=== PATIENT | female | born 1965 | race Caucasian/White ===

== ENCOUNTER 2024-06-20 07:13 | Day surgery (SDC) | payer OTHER ==
[2024-06-20] MEDS ORDERED: Xylocaine-Mpf 2% 5 Ml Vial IJ ONE (07:14)
[2024-06-20] MEDS ORDERED: Depo-Medrol 40 MG/ML IM ONE (07:14)
[2024-06-20] MEDS ORDERED: DIPRIVAN 200 MG/20 ML IV ONE (08:56)
--- NOTE | 2024-06-20 10:25 | XRAY ---
Indication: Bilateral L4-S1 MBB. Intraoperative fluoroscopy provided for 19 seconds. Single digital spot image submitted for interpretation demonstrates posterior needle tips projecting over the expected left and right L4-S1 nerve roots. Correlate with intraoperative findings/report.
--- NOTE | 2024-06-20 11:32 | XRAY ---
19 seconds of fluoroscopy was used in surgery for a bilateral L4-S1 MBB.
== END 2024-06-20 09:25 | disposition home or self-care (01) ==
LOC: SDC-PAIN 07:13
PROVIDERS: ATTEND Psychiatry & Neurology Pain Medicine
DX: M47.816 Spondylosis without myelopathy or radiculopathy, lumbar region (principal); E11.9 Type 2 diabetes mellitus without complications
CPT/HCPCS: 64493; 64494; 72020; 77002; 82947; J2704

== ENCOUNTER 2024-07-18 12:13 | Day surgery (SDC) | payer OTHER ==
[2024-07-18] MEDS ORDERED: BUPIVACAINE 0.5% VIAL IJ ONE (12:14)
[2024-07-18] MEDS ORDERED: Depo-Medrol 40 MG/ML IM ONE (12:14)
[2024-07-18] MEDS ORDERED: DIPRIVAN 200 MG/20 ML IV ONE (14:16)
--- NOTE | 2024-07-18 15:00 | XRAY ---
Indication: Bilateral L4-S1 MBB. Intraoperative fluoroscopy provided for 20 seconds. Single digital spot image submitted for interpretation demonstrates posterior needle tips projecting over the expected left and right L4-S1 nerve roots. Correlate with intraoperative findings/report.
--- NOTE | 2024-07-18 17:05 | XRAY ---
20 seconds of fluoroscopy was used in surgery for a bilateral L4-S1 MBB.
== END 2024-07-18 14:52 | disposition home or self-care (01) ==
LOC: SDC-PAIN 12:13
PROVIDERS: ATTEND Psychiatry & Neurology Pain Medicine
DX: M47.816 Spondylosis without myelopathy or radiculopathy, lumbar region (principal); E11.9 Type 2 diabetes mellitus without complications
CPT/HCPCS: 64493; 64494; 72020; 77002; 82947; J2704

== ENCOUNTER 2024-08-29 07:27 | Day surgery (SDC) | payer OTHER ==
[2024-08-29] MEDS ORDERED: LIDOCAINE HCL 1% AMPUL 5 ML IJ ONE (07:28)
[2024-08-29] MEDS ORDERED: BUPIVACAINE 0.5% VIAL IJ ONE (07:28)
[2024-08-29] MEDS ORDERED: Depo-Medrol 40 MG/ML IM ONE (07:28)
[2024-08-29] MEDS ORDERED: propofoL IV ONE (09:02)
--- NOTE | 2024-08-29 10:43 | XRAY ---
Indication: Left L4-S1 RFA. Intraoperative fluoroscopy provided for 28 seconds. 3 digital spot image submitted for interpretation demonstrates posterior needle tips projecting over expected left L4-S1 nerve roots. Correlate with intraoperative findings/report.
--- NOTE | 2024-08-29 10:51 | XRAY ---
28 seconds of fluoroscopy was used in surgery for a left L4-S1 RFA.
== END 2024-08-29 09:32 | disposition home or self-care (01) ==
LOC: SDC-PAIN 07:27
PROVIDERS: ATTEND Psychiatry & Neurology Pain Medicine
DX: M47.817 Spondylosis without myelopathy or radiculopathy, lumbosacral region (principal); E11.9 Type 2 diabetes mellitus without complications
CPT/HCPCS: 64635; 64636; 72100; 77002; 82947; J2704

== ENCOUNTER 2024-08-30 07:06 | Day surgery (SDC) | payer OTHER ==
[2024-08-30] MEDS ORDERED: Depo-Medrol 40 MG/ML IM ONE (07:07)
[2024-08-30] MEDS ORDERED: LIDOCAINE HCL 1% AMPUL 5 ML IJ ONE (07:07)
[2024-08-30] MEDS ORDERED: BUPIVACAINE 0.5% VIAL IJ ONE (07:07)
[2024-08-30] MEDS ORDERED: propofoL IV ONE (08:45)
--- NOTE | 2024-08-30 09:47 | XRAY ---
Indication: Right L4-S1 RFA. Intraoperative fluoroscopy provided for 16 seconds. 4 digital spot image submitted for interpretation demonstrates posterior needle tips projecting over expected right L4-S1 nerve roots. Correlate with intraoperative findings/report.
--- NOTE | 2024-08-30 10:29 | XRAY ---
16 seconds of fluoroscopy was used in surgery for a right L4-S1 RFA.
== END 2024-08-30 09:10 | disposition home or self-care (01) ==
LOC: SDC-PAIN 07:06
PROVIDERS: ATTEND Psychiatry & Neurology Pain Medicine
DX: M47.816 Spondylosis without myelopathy or radiculopathy, lumbar region (principal)
CPT/HCPCS: 64635; 64636; 72100; 77002; 82947; J2704

== ENCOUNTER 2024-10-15 06:17 | Day surgery (SDC) | payer OTHER ==
[2024-10-15] MEDS ORDERED: Lactated Ringers 1,000 ML IV ONE (06:46)
[2024-10-15 06:54] VITALS: O2SAT 98
[2024-10-15] MEDS: Lactated Ringers 1,000 ML IV SCH (07:05)
[2024-10-15] MEDS ORDERED: propofoL IV ONE ×2 (07:53→08:04)
[2024-10-15 08:44] VITALS: RESP 16
[2024-10-15 08:59] VITALS: BP 155/86; PULSE 63; TEMP 97.4
--- NOTE | 2024-10-17 08:15 | OP ---
SURGERY DATE/TIME: 10/15/2024 [id number] PREOPERATIVE DIAGNOSIS: Screening exam. POSTOPERATIVE DIAGNOSIS: Moderate to severe sigmoid diverticulosis; otherwise, normal colon. PROCEDURE: Colonoscopy. SURGEON: Juan Pablo Napier MD ANESTHESIA: Medications given by the anesthesia department. INDICATIONS: The patient is a 58-year-old white female presenting now for her first screening colonoscopy. She reports a family history of both her father and sister with colon cancer. The patient is currently having no symptoms. She was appraised of the risks of the procedure including risk of perforation, phlebitis, untoward reaction to medication, bleeding, and missed lesions. The patient verbalized her understanding and desire to have procedure performed. DESCRIPTION OF PROCEDURE AND FINDINGS: The patient was given medication by the anesthesia department. She had continuous pulse oximetry, ECG monitoring, and intermittent blood pressure monitoring during the examination. She was placed in the left lateral decubitus position. Digital rectal examination was performed and revealed normal anal sphincter tone and no masses. The flexible Olympus videocolonoscope was used to intubate the rectum. A view of the colon was developed sequentially to the cecum. Upon insertion and withdrawal, including retroflexed view in the rectum, was noted moderate to severe sigmoid diverticulosis. No other mucosal lesions being encountered, the scope was removed from the patient who tolerated the procedure well and was sent back to outpatient recovery in good condition. The prep was noted to be fair.
== END 2024-10-15 09:08 | disposition home or self-care (01) ==
LOC: SDC 06:17
PROVIDERS: ATTEND Family Medicine
DX: Z12.11 Encounter for screening for malignant neoplasm of colon (principal); K57.30 Diverticulosis of large intestine without perforation or abscess without bleeding; Z80.0 Family history of malignant neoplasm of digestive organs
CPT/HCPCS: J2704